=== PATIENT | male | born 1985 | race African-American/Black ===

== ENCOUNTER 2019-06-15 13:00 | Emergency (ER) | payer OTHER ==
[2019-06-15 13:21] VITALS: TEMP 99.6; BMI 27.7
[2019-06-15] MEDS ORDERED: AMPICILLIN NA/SULBACTAM NA 1.5 GM in SODIUM CHLORIDE 100 ML IVPB ONE (13:27)
[2019-06-15] MEDS ORDERED: KETOROLAC TROMETHAMINE 30 MG/1 ML VIAL IVPUSH ONE (13:27)
[2019-06-15] MEDS ORDERED: SODIUM CHLORIDE 1,000 ML IV STA (13:28)
[2019-06-15] MEDS ORDERED: DEXAMETHASONE SOD PHOSPHATE 10 MG/1 ML VIAL IVPUSH ONE (13:28)
[2019-06-15] MEDS ORDERED: AMPICILLIN NA/SULBACTAM NA 1.5 GM VIAL ONE (13:32)
[2019-06-15] MEDS ORDERED: DEXAMETHASONE SOD PHOSPHATE 10 MG/1 ML VIAL ONE (13:32)
[2019-06-15] MEDS ORDERED: KETOROLAC TROMETHAMINE 30 MG/1 ML VIAL ONE (13:32)
[2019-06-15 14:00] LABS: BASO % 0.5 % (0-2.0); EOS % 0.7 % (0-4.5); HEMATOCRIT 43.2 % (35.4-49); HEMOGLOBIN 13.9 GM/dL (11.7-16.9); MCH 29.6 pg (25.7-33.7); MCHC 32.2 g/dl (32.0-35.9); MEAN CELL VOLUME 91.9 fl (80-96); MEAN PLT VOLUME 7.9 fl (7.5-11.1); MONO % 9.5 % (3.8-10.2); NEUT % 77.3 % (42.8-82.8); RDW 11.9 % (11.9-15.9); WHITE BLOOD COUNT 14.8 K/mm3 (4.0-10.0)
[2019-06-15 14:12] LABS: INR 1.16 (0.83-1.09); PROTHROMBIN TIME (PATIENT) 13.7 SEC (9.7-13.0)
[2019-06-15 14:15] LABS: PLATELET COUNT 302 K/MM3 (134-434)
--- NOTE | 2019-06-15 14:21 | PDOC ---
History of Present Illness - General History Source: Patient - History of Present Illness Timing/Duration: reports: other <Christy DalyJose Alfredo - Last Filed: 06/15/19 15:19> <Emily Louis - Last Filed: 06/15/19 16:46> - General Chief Complaint: Sore Throat Stated Complaint: SORE THROAT Time Seen by Provider: 06/15/19 13:21 Past History - Past Medical History Cancer: No Cardiac Disorders: No CVA: No COPD: No - Suicide/Smoking/Psychosocial Hx Smoking Status: No Smoking History: Never smoked Have you smoked in the past 12 months: No Number of Cigarettes Smoked Daily: 0 Hx Alcohol Use: No Drug/Substance Use Hx: No Substance Use Type: None <Lillian DalyKassidy - Last Filed: 06/15/19 15:19> <Emily Louis - Last Filed: 06/15/19 16:46> - Past Medical History Allergies/Adverse Reactions: Allergies Allergy/AdvReac Type Severity Reaction Status Date / Time No Known Allergies Allergy Verified 06/15/19 13:48 Home Medications: Ambulatory Orders Amoxicillin - [Amoxicillin 500mg Capsule -] 875 mg PO BID 06/15/19 Amoxicillin/Potassium Clav [Augmentin 875-125 Tablet] 1 each PO BID #14 tablet 06/15/19 Ibuprofen Oral Suspension [Motrin Oral Suspension -] 800 mg PO Q6H #1 ml Methylprednisolone [Medrol Dose Evaristo] 4 mg PO ASDIR #21 tablet 06/15/19 Review of Systems - Review of Systems Constitutional: No: Chills, Fever HEENTM: Yes: Throat Pain <SyrianJose Last Filed: 06/15/19 15:19> *Physical Exam - Vital Signs Last Vital Signs Temp Pulse Resp BP Pulse Ox 99.6 F 81 20 127/81 100 06/15/19 13:06 06/15/19 13:06 06/15/19 13:06 06/15/19 13:06 06/15/19 13:06 - Physical Exam General Appearance: Yes: Appropriately Dressed, Moderate Distress HEENT: positive: Muffled/Hoarse voice, Other (fullness to R posterior pharynx w / L uvula 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 negative: Stridor, Lymphadenopathy (R), Lymphadenopathy (L) Respiratory/Chest: negative: Respiratory Distress Integumentary: positive: Dry, Warm Neurologic: positive: Fully Oriented, Alert, Normal Mood/Affect <SyrianJose - Last Filed: 06/15/19 15:19> - Vital Signs Last Vital Signs Temp Pulse Resp BP Pulse Ox 99.6 F 78 18 127/78 98 06/15/19 13:06 06/15/19 14:56 06/15/19 14:56 06/15/19 14:56 06/15/19 14:56 <Emily Louis - Last Filed: 06/15/19 16:46> Procedures - Additional Procedures Additional Procedures: other Progress: Bedside ultrasound was done to confirm the JUMBO OPERATOR, and was positive for small ~1cm collection. Patient was anesthetized with local lidocaine 1%, then attempted to aspirate the fluctuant area with 18G needle, inserted to maximum of 2cm. Attempted x2, unsuccessful in getting return of purulent material. Patient tolerated well, minimal blood loss. <Emily Louis - Last Filed: 06/15/19 16:46> ED Treatment Course - LABORATORY CBC & Chemistry Diagram: 06/15/19 13:30 06/15/19 13:30 - Medications Given in the ED: ED Medications Discontinued Medications Generic Name Dose Route Start Last Admin Trade Name Reggie PRN Reason Stop Dose Admin Dexamethasone Sodium Phosphate 10 mg 06/15/19 13:28 06/15/19 13:41 Decadron Injection - IVPUSH 06/15/19 13:29 10 mg ONCE ONE Administration Ketorolac Tromethamine 30 mg 06/15/19 13:27 06/15/19 13:41 Toradol Injection - IVPUSH 06/15/19 13:28 30 mg ONCE ONE Administration <SyrianChristyBobbyShari - Last Filed: 06/15/19 15:19> - LABORATORY CBC & Chemistry Diagram: 06/15/19 13:30 06/15/19 13:30 - ADDITIONAL ORDERS Additional order review: Laboratory Results 06/15/19 06/15/19 06/15/19 13:30 13:30 13:30 PT with INR 13.70 H INR 1.16 H Sodium 136 Potassium 4.1 Chloride 99 Carbon Dioxide 31 Anion Gap 6 L BUN 16.5 Creatinine 1.2 Est GFR (CKD-EPI)AfAm 90.89 Est GFR (CKD-EPI)NonAf 78.42 Random Glucose 94 Calcium 9.3 Total Bilirubin 0.7 AST 17 ALT 22 Alkaline Phosphatase 82 Total Protein 8.6 H Albumin 4.1 Blood Type B POSITIVE Antibody Screen Negative 06/15/19 13:30 RBC 4.70 MCV 91.9 MCHC 32.2 RDW 11.9 MPV 7.9 Neutrophils % 77.3 Lymphocytes % 12.0 D Monocytes % 9.5 Eosinophils % 0.7 D Basophils % 0.5 - Medications Given in the ED: ED Medications Discontinued Medications Generic Name Dose Route Start Last Admin Trade Name Freq PRN Reason Stop Dose Admin Dexamethasone Sodium Phosphate 10 mg 06/15/19 13:28 06/15/19 13:41 Decadron Injection - IVPUSH 06/15/19 13:29 10 mg ONCE ONE Administration Ampicillin Sodium/Sulbactam 100 mls @ 200 mls/hr 06/15/19 13:27 06/15/19 13: 47 Sodium 1.5 gm/ Sodium Chloride IVPB 06/15/19 13:56 200 mls/hr ONCE ONE Administration Sodium Chloride 1,000 mls @ 1,000 mls/hr 06/15/19 13:28 06/15/19 13:41 Normal Saline - IV 06/15/19 14:27 1,000 mls/hr ASDIR STA Administration Ketorolac Tromethamine 30 mg 06/15/19 13:27 06/15/19 13:41 Toradol Injection - IVPUSH 06/15/19 13:28 30 mg ONCE ONE Administration <Emily Louis - Last Filed: 06/15/19 16:46> Medical Decision Making - Medical Decision Making 06/15/19 14:21 33-year-old male, history of recurrent 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 Also reports AGUIAR and fatigue. States he was seen at [facility] for same. On initial visit, had neg strep test and dc w/ motrin. On 2nd visit, given amox. Has since taken 2 doses. No improvement in sxs. Denies f/c See exam JUMBO OPERATOR No airway compromise Stable -unasyn -pain control -steroids -IVF -Pt s/p bedside US by Dr Soledad perera/ rubin reddy, ED staff to attempt I&D 06/15/19 15:08 Unsuccessful I&D here, will place consult to ENT at this time 06/15/19 15:19 Case d/w Dr Monteiro of ENT, states he can perform I&D in office in am. Aware of labs. Rec pt start on medrol dosepack and augmentin. Pt reports feeling sig better w/ meds. Tolerating po and handling own secretions. Feels well enough to go home and f/u with ENT in am. ED attg aware of dispo <Jose Daly - Last Filed: 06/15/19 15:19> *DC/Admit/Observation/Transfer <Jose Daly - Last Filed: 06/15/19 15:19> <Emily Louis - Last Filed: 06/15/19 16:46> Diagnosis at time of Disposition: Peritonsillar abscess - Discharge Dispostion Disposition: HOME Condition at time of disposition: Improved - Prescriptions Prescriptions: Amoxicillin/Potassium Clav [Augmentin 875-125 Tablet] 1 each PO BID #14 tablet Ibuprofen Oral Suspension [Motrin Oral Suspension -] 800 mg PO Q6H #1 ml Methylprednisolone [Medrol Dose Evaristo] 4 mg PO ASDIR #21 tablet - Referrals Referrals: Bishop Martínez MD [Primary Care Provider] - - Patient Instructions Printed Discharge Instructions: DI for Peritonsillar Abscess -- Adult Additional Instructions: You have a peritonsillar abscess today that we were unable to drain in the emergency room. We spoke to ENT, Dr. Monteiro, who wants to see you in the office tomorrow to drain abscess. He wants you to call his movie theater manager at [phone], tomorrow after 8am to schedule appointment for tomorrow. If movie theater manager informs you that Dr. Monteiro is booked, please inform her that our ER had contacted him and he wants clinic to overbook you as his last patient If they have any question, have them call JULIO Daly at [phone] anytime after 8am tomorrow Please take medications as directed - Post Discharge Activity Forms/Work/School Notes: Back to Work
[2019-06-15 14:38] LABS: ALBUMIN 4.1 g/dl (3.4-5.0); BILIRUBIN,TOTAL 0.7 mg/dL (0.2-1); BLOOD UREA NITROGEN 16.5 mg/dL (7-18); CALCIUM 9.3 mg/dL (8.5-10.1); CREATININE 1.2 mg/dL (0.55-1.3); POTASSIUM 4.1 mmol/L (3.5-5.1); TOT PROT 8.6 g/dl (6.4-8.2)
[2019-06-15 14:57] VITALS: BP 127/78; PULSE 78
== END 2019-06-15 15:37 | disposition home or self-care (01) ==
LOC: JER 13:00
PROC: 0C9P0ZZ Drainage of Tonsils, Open Approach (ICD-10-PCS; principal; 2019-06-15)
PROC: 3E03329 Introduction of Other Anti-infective into Peripheral Vein, Percutaneous Approach (ICD-10-PCS; 2019-06-15)
PROC: 3E0333Z Introduction of Anti-inflammatory into Peripheral Vein, Percutaneous Approach (ICD-10-PCS; 2019-06-15)
PROC: 3E033NZ Introduction of Analgesics, Hypnotics, Sedatives into Peripheral Vein, Percutaneous Approach (ICD-10-PCS; 2019-06-15)
PROC: 3E0337Z Introduction of Electrolytic and Water Balance Substance into Peripheral Vein, Percutaneous Approach (ICD-10-PCS; 2019-06-15)
DX: J36 Peritonsillar abscess (principal)
CPT/HCPCS: 36415; 80053; 85025; 85610; 86850; 86900; 86901; 99283-25; J1100; J7030

== ENCOUNTER 2022-05-04 18:10 | Emergency (ER) | payer OTHER ==
[2022-05-04 18:26] VITALS: BP 109/67; PULSE 88; TEMP 98.4
[2022-05-04] MEDS ORDERED: IBUPROFEN 600 MG TABLET (FP) PO ONE ×2 (20:11→20:20)
[2022-05-04] MEDS ORDERED: FAMOTIDINE 20 MG TABLET ONE (20:20)
[2022-05-04] MEDS ORDERED: BACITRACIN 15 GM TUBE TOPICAL OINTMENT ONE (20:21)
[2022-05-04] MEDS ORDERED: MUPIROCIN 2% TOPICAL OINTMENT 22 GM TUBE TP SCH (22:00)
== END 2022-05-04 20:45 | disposition home or self-care (01) ==
LOC: JERFT 18:10
DX: S93.401A Sprain of unspecified ligament of right ankle, initial encounter (principal); X50.0XXA Overexertion from strenuous movement or load, initial encounter
CPT/HCPCS: 73630-TC-RT-FY; 99283-25

== ENCOUNTER 2022-06-22 00:57 | Emergency (ER) | payer OTHER ==
[2022-06-22 02:00] VITALS: BP 135/88; PULSE 59; RESP 18; TEMP 98.3; BMI 39.9
== END 2022-06-22 01:37 | disposition home or self-care (01) ==
LOC: JER 00:57
DX: K08.89 Other specified disorders of teeth and supporting structures (principal)
CPT/HCPCS: 99283-25

== ENCOUNTER 2022-11-15 06:55 | Emergency (ER) | payer OTHER ==
[2022-11-15 07:00] VITALS: BP 128/73; PULSE 86; RESP 18; TEMP 98.2; BMI 28.4
[2022-11-15] MEDS ORDERED: DEXAMETHASONE SOD PHOSPHATE 10 MG/1 ML VIAL PO ONE (07:32)
[2022-11-15] MEDS ORDERED: DEXAMETHASONE SOD PHOSPHATE 10 MG/1 ML VIAL ONE (07:34)
[2022-11-15 08:20] LABS: THROAT:GRP A STREP NOT DETECTED (NOTDETECTED)
== END 2022-11-15 07:45 | disposition home or self-care (01) ==
LOC: JERFT 06:55 → JER 06:55 → JERFT 07:45
DX: J03.90 Acute tonsillitis, unspecified (principal)
CPT/HCPCS: 0241U-QW; 87651; 99283-25; J1100

== ENCOUNTER 2023-05-09 12:05 | Emergency (ER) | payer OTHER ==
[2023-05-09 12:14] VITALS: BP 122/80; PULSE 103; RESP 16; TEMP 99; BMI 29.6
[2023-05-09] MEDS ORDERED: MAG HYDROX/ALH/SMC/DPHA/LIDO 240 ML MOUTHWASH MM STA (13:05)
[2023-05-09] MEDS ORDERED: AMOX TR/POT CLAV 875MG/125MG TABLETS (FP) PO ONE (14:20)
[2023-05-09] MEDS ORDERED: AMOX TR/POT CLAV 875MG/125MG TABLETS (FP) ONE (14:32)
== END 2023-05-09 14:36 | disposition home or self-care (01) ==
LOC: JERFT 12:05
DX: R07.0 Pain in throat (principal); R13.10 Dysphagia, unspecified; J02.0 Streptococcal pharyngitis
CPT/HCPCS: 87651; 99283-25